=== PATIENT | female | born 1935 | race Caucasian/White ===

== ENCOUNTER → 2018-07-08 | Outpatient (CLI) | payer MEDICARE ==
--- NOTE | 2018-07-08 10:40 | XR ---
EXAMINATION TYPE: XR shoulder complete RT, XR humerus RT DATE OF EXAM: 07/08/2018 CLINICAL HISTORY: Fall injury per order. Pain per patient. TECHNIQUE: Three views of the right shoulder are obtained. 2 views of right humerus are acquired. COMPARISON: None. FINDINGS: Demineralization is present. There is no acute fracture/dislocation evident in the right s houlder. Moderate to severe narrowing at acromioclavicular joint is present. There is mild to moderat e narrowing superior glenohumeral joint with mild spurring inferior glenoid. The visualized ribs are intact and unremarkable. There is mild to moderate right apical pleural/parenchymal scarring felt pr esent. Images of right humerus show no acute fracture or dislocation. Visualized right elbow joint is within normal limits. Overlying soft tissue is unremarkable. IMPRESSION: There is no acute fracture or dislocation in the right humerus or shoulder.
== END | disposition home or self-care (01) ==
LOC: RADXRMAIN 09:38
PROVIDERS: ATTEND Family Medicine
DX: M25.511 Pain in right shoulder (principal)